=== PATIENT | male | born 1990 | race Caucasian/White ===

== ENCOUNTER 2021-06-01 23:26 | Emergency (ER) | payer OTHER ==
[~2021-06-01] VITALS: Ht 167.6 cm; Wt 63.5 kg
--- NOTE | ~2021-06-01 | EMS ---
[facility] [address] [place] [address] EMS Patient Care Report Name: CHRISTIANO VALADEZ V Room #: DEP Josh#: [id number] Admission: 06/01/21 Attend Phys: Discharge: 06/02/21 Date of : [birth year] Report #: [id number] THIS REPORT FOR: //name// Report Transmitted: 06/02/2021 02:58 EMS Care Summary [place], [place]/[facility] Incident [id number] @ 06/01/2021 22:52 Incident Location [id number] [place] [address] Patient CHRISTIANO VALADEZ Male, 31 Years 1990 Patient Address Chief Complaint ABNORMAL BEHAVIOR Disposition Transported No Lights/[place] Reason Unknown Problem/Person Down Transported To [facility] Narrative DISPATCHED NON-EMERGENCY (STAGED RESPONSE) TO THE SCENE OF A REPORTED UNKNOWN PROBLEM. UPON ARRIVAL WITH PD, PATIENT WAS LOCATED IN THE HANDICAPPED STALL OF THE MEN'S BATHROOM OF THE BUSINESS. PATIENT PRESENTS UNDER THE INFLUENCE OF UNKNOWN SUBSTANCE. PATIENT BECOMES COMBATIVE AND UNCOOPERATIVE WITH PD. PATIENT IS PLACED IN HANDCUFFS BEHIND HIS BACK AND PLACED ON THE COT. PD STATES THEY DO NOT HAVE CHARGES AND THE HANDCUFFS WERE REMOVED. PATIENT WAS PLACED IN SOFT RESTRAINTS. PATIENT REMAINED COMBATIVE AND UNCOOPERATIVE DURING DURATION OF CALL. UNABLE TO OBTAIN VITAL SIGNS DUE TO PATIENT'S COMBATIVENESS. PATIENT LOADED TO AMBULANCE AND SECURED. TRANSPORTED TO [facility] WITHOUT INCIDENT OR CHANGE IN CONDITION. Initial Vitals @23:22R: 18,GCS: 14, [facility] [address] [place] [address] EMS Patient Care Report Name: CHRISTIANO VALADEZ V Room #: DEP [facility]#: [id number] Admission: 06/01/21 Attend Phys: Discharge: 06/02/21 Date of : 86 Report #: [id number] Assessments @23:02MENTAL:Combative,Confused,SKIN:HEENT:Head/Face: No Abnormalities,Neck/Airway: No Abnormalities,LUNG SOUNDS:General: No Abnormalities,ABDOMEN:General: No Abnormalities,PELVIS//GI:No Abnormalities,EXTREMITIES:Left Arm: No Abnormalities,Right Arm: No Abnormalities,Left Leg: No Abnormalities,Right Leg: No Abnormalities,PULSE:Radial: 2+ Normal,NEURO:No Abnormalities, Impression Behavioral/psychiatric episode Procedures @23:02ALS AssessmentResponse: UnchangedSucceeded Timeline 22:52,Call Received 22:52,Dispatch Notified 22:52,Dispatched 22:53,En Route 22:59,On Scene 23:01,At Patient 23:02,ALS Assessment,Response: UnchangedSucceeded, 23:20,Depart Scene 23:22,BP: / M,PULSE: ,RR: 18 R,SPO2: Ox,ETCO2: ,BG: ,PAIN: ,GCS: 14, 23:24,At Destination 23:37,Call Closed Disclaimer v1.1 Copyright 2020 [employer] This EMS Care Summary contains data elements from the applicable legal record (which may be displayed differently). It is designed to provide pertinent information for the following purposes: continuity of care, clinical quality, and state data reporting. The complete legal record is available to ED staff and administrators of the receiving hospital in [facility]'s Patient Tracker. All data is provided "as is."
[2021-06-02] VITALS: BP 134/72
== END 2021-06-02 00:13 | disposition home or self-care (01) ==
LOC: ER 23:26
DX: F10.129 Alcohol abuse with intoxication, unspecified (principal)